=== PATIENT | female | born 1975 | race American Indian/Alaskan Native ===

== ENCOUNTER 2018-07-05 05:27 | Emergency (ER) | payer MEDICARE, OTHER ==
[2018-07-05 05:39] VITALS: BP 99/69
[2018-07-05] MEDS ORDERED: TORADOL IM ONE (07:23)
[2018-07-05] MEDS ORDERED: DELTASONE PO ONE (07:24)
--- NOTE | 2018-07-05 07:27 | Emergency Department Report ---
HPI - General Chief Complaint: Back Pain/Injury Time Seen by Provider: 07/05/18 07:08 - HPI HPI: This is a 43-year-old female with a history of pinched nerves are presented to ED complaining of acute on chronic buttock pain that is radiating down her thig hs. Patient states that about a month ago she got her first episode and was seen by urgent care and medicated. Patient states that symptoms resolved within about a week ago symptoms returned. Patient denies any recent trauma injuries or falls. She denies fevers/chills/nausea vomiting/dysuria ED Past Medical Hx - Past Medical History Previous Medical History?: Yes Hx Arthritis: Yes (Rheumatoid) Additional medical history: Lupus, Fibromylagia, Pericarditis - Surgical History Additional Surgical History: Hysterectomy, - Social History Smoking Status: Current Every Day Smoker Substance Use Type: None - Medications Home Medications: Home Medications Medication Instructions Recorded Confirmed Last Taken Type Meloxicam [Mobic] 15 mg PO DAILY #30 tablet 07/05/18 Unknown Rx Tizanidine HCl [Zanaflex] 2 mg PO BID PRN #30 capsule 07/05/18 Unknown Rx ED Review of Systems ROS: Stated complaint: LOWER BACK PAIN Other details as noted in HPI Comment: All other systems reviewed and negative Physical Exam - Physical Exam Vital Signs: Vital Signs 07/05/18 05:33 Temperature 98.6 F Pulse Rate 81 Respiratory 16 Rate Blood Pressure 99/69 Physical Exam: GENERAL: Alert and oriented x3, no apparent distress, Normal Gait, atraumatic. HEAD: Head is normocephalic and a-traumatic. BACK: Full range of motion, no spinal tenderness, Tenderness to palpation of the latissimus dorsi muscles of the back EXTREMITIES/MUSCULOSKELETAL: No cyanosis, clubbing, rash, lesions or edema. Full ROM bilaterally. UE/LE Pulses 2+ bilaterally. LE and UE 5+ strength bilaterally, straight leg test positive on the left NEUROLOGIC: The patient is cooperative with no focal neurologic deficits. SKIN: Warm and dry, No lesions, No ulceration or induration present. ED Course Vital Signs 07/05/18 05:33 Temperature 98.6 F Pulse Rate 81 Respiratory 16 Rate Blood Pressure 99/69 ED Medical Decision Making - Medical Decision Making 43-year-old female presents to ED with lumbar radiculopathy ED course: Patient received Toradol and prednisone in ED. Vital signs are normal patient is in no acute distress Discussed with patient follow-up with primary care physician. Discussed the patient and take medications as prescribed. Patient has no neurological deficit. Patient is alert and oriented 3 and understands all instructions given. Critical care attestation.: If time is entered above; I have spent that time in minutes in the direct care of this critically ill patient, excluding procedure time. ED Disposition Clinical Impression: Lumbar radiculopathy, Sciatic leg pain Disposition: TO HOME OR SELFCARE Is pt being admited?: No Does the pt Need Aspirin: No Condition: Stable Instructions: Lumbar Radiculopathy (ED), Arthralgia (ED), Heat Pack Application (ED) Additional Instructions: Make sure to follow up with the primary care physician as discussed. Take all your medications as you've been prescribed. If you have any worsening symptoms or develop new symptoms please return to ED immediately. Prescriptions: Meloxicam [Mobic] 15 mg PO DAILY #30 tablet Tizanidine HCl [Zanaflex] 2 mg PO BID PRN #30 capsule PRN Reason: Muscle Spasm Referrals: LORETTA MCGEE MD [Primary Care Provider] - 3-5 Days SERA COBOS MD [Staff Physician] - 3-5 Days Forms: Work/School Release Form(ED) Time of Disposition: 07:47
== END 2018-07-05 07:57 | disposition home or self-care (01) ==
LOC: ED 05:27
DX: M54.16 Radiculopathy, lumbar region (principal); M54.30 Sciatica, unspecified side; M06.9 Rheumatoid arthritis, unspecified; F17.200 Nicotine dependence, unspecified, uncomplicated; Z90.710 Acquired absence of both cervix and uterus; Z88.6 Allergy status to analgesic agent; Z88.0 Allergy status to penicillin
CPT/HCPCS: 96372; 99282; J1885; J7512